=== PATIENT | female | born 1985 | race Caucasian/White ===

== ENCOUNTER → 2016-08-24 | Outpatient (CLI) | payer BC ==
[~2016-08-24] MED LIST: LBT100 PO; PRENTAB26 PO
== END | disposition home or self-care (01) ==
LOC: C.PAPS 13:58
PROVIDERS: ATTEND Obstetrics & Gynecology
DX: Z01.419 Encounter for gynecological examination (general) (routine) without abnormal findings (principal)

== ENCOUNTER → 2017-04-27 | Outpatient (CLI) | payer BC | END | disposition home or self-care (01) | LOC: C.LABSPEC 10:35 | PROVIDERS: ATTEND Physician Assistant | DX: Z30.430 Encounter for insertion of intrauterine contraceptive device (principal) ==